=== PATIENT | male | born 1955 | race Hispanic/Latino ===

== ENCOUNTER 2024-01-05 06:03 | Day surgery (SDC) | payer OTHER ==
--- NOTE | 2023-12-30 13:51 | EKG ---
[facility] Test Date: 2023-12-30 Test Time: 13:44:34 Pat Name: PILAR WARREN Department: [facility] Room: Gender: M Theatre Manager: [id number] : 1955 Requested By: SEDA AKHTAR Order Number: [id number] Reading MD: Oni Maher Measurements Intervals Foster Rate: 70 P: 42 WA: 144 QRS: -9 QRSD: 97 T: 8 QT: 362 QTc: 391 Interpretive Statements Sinus rhythm No previous ECG available for comparison Electronically Signed On 12-30-2023 17:05:22 CDT by Oni Maher Please click the below link to view image of tracing.
[2023-12-30 13:56] LABS: BASOPHILS # (AUTO) 0.03 K/uL (0.00-0.20); BASOPHILS % (AUTO) 0.5 % (0.0-5.0); EOSINOPHILS # (AUTO) 0.25 K/uL (0.00-0.70); EOSINOPHILS % (AUTO) 3.8 % (0.0-8.0); HEMATOCRIT 36.1 % (42-54); IMMATURE GRANULOCYTE ABSOLUTE 0.02 K/uL (0-1); LYMPHOCYTES # (AUTO) 2.1 K/uL (1.0-4.8); LYMPHOCYTES % (AUTO) 31.5 % (21.0-51.0); MEAN CORPUSCULAR HEMOGLOBIN 29.5 pg (27.0-33.0); MEAN CORPUSCULAR HGB CONC 32.4 g/dL (32.0-36.0); MEAN CORPUSCULAR VOLUME 90.9 fL (79-99); MONOCYTES # (AUTO) 0.4 K/uL (0.1-1.0); MONOCYTES % (AUTO) 5.4 % (3.0-13.0); NEUTROPHILS # (AUTO) 3.9 K/uL (1.8-7.7); NEUTROPHILS % (AUTO) 58.5 % (40.0-77.0); PLATELET COUNT (AUTO) 238 K/uL (130-400); RED BLOOD CELL COUNT(AUTO) 3.97 MIL/uL (4.50-6.20); RED CELL DISTRIBUTION WIDTH 12.5 % (11.0-15.5); WHITE BLOOD COUNT (AUTO) 6.6 K/uL (4.8-10.8)
[2023-12-30 14:08] VITALS: BP 133/60; PULSE 72; RESP 19; TEMP 98.8
[2023-12-30 14:12] LABS: ALBUMIN 4.1 g/dL (3.5-5.0); BILIRUBIN,TOTAL 0.5 mg/dL (0.2-1.0); CREATININE 0.9 mg/dL (0.5-1.3); POTASSIUM 4.4 mmol/L (3.5-5.1); TOTAL PROTEIN, SERUM 7.7 g/dL (6.0-8.3)
[2023-12-30 14:17] LABS: INR 0.98 (0.85-1.15); PROTHROMBIN TIME 10.6 SEC (9.6-11.6)
[2023-12-30 14:18] LABS: PARTIAL THROMBOPLASTIN TIME 27.1 SEC (26.3-35.5)
[~2024-01-05] VITALS: Ht 160 cm; Wt 65.6 kg
[2024-01-05] VITALS (13 sets, daily range): BP systolic 124–153; BP diastolic 53–73; PULSE 72–95; RESP 13–18; TEMP 97.2–98.1
[~2024-01-05 06:03] MED LIST: ATOR10 PO; LISI5TAB21 PO; METF-444 PO; METF-446 PO
[2024-01-05] MEDS: ceFAZolin SODIUM 1 GM VIAL ONE (06:14)
[2024-01-05] MEDS ORDERED: acetaMINOPHEN 100 ML ONE (06:56)
[2024-01-05] MEDS ORDERED: FAMOTIDINE 20MG VIAL IV ONE (06:56)
[2024-01-05] MEDS ORDERED: rocuRONium bROMide 10MG/1ML 5ML VL ONE (07:03)
[2024-01-05] MEDS ORDERED: LIDOCAINE PF 100MG/5ML (2%) SYRINGE 5ML ONE (07:03)
[2024-01-05] MEDS ORDERED: proPOFol 10 MG/ML 20ML VIAL IV ONE (07:03)
[2024-01-05] MEDS ORDERED: FENTanyl CITRate PF 50 MCG/1 ML 2ML VIAL ONE (07:04)
[2024-01-05] MEDS ORDERED: dexaMETHasone SOD PHOSPHATE 10MG/ML 1ML VIAL ONE (07:57)
[2024-01-05] MEDS ORDERED: ondanSETRON 4MG INJ ONE (07:57)
[2024-01-05] MEDS: BUPIvacaine/PF 0.25% 30ML VIAL IJ ONE (08:18)
[2024-01-05] MEDS: LIDOCAINE 1%-EPI 1:100,000 20 ML VIAL ONE (08:18)
[2024-01-05] MEDS ORDERED: NEOSTIGMINE METHYLSULFATE 1MG/ML IV ONE (08:28)
[2024-01-05] MEDS ORDERED: GLYCOPYRROLATE 0.2 MG/ML 5 ML VIAL ONE (08:28)
[2024-01-05] MEDS ORDERED: SUGAMMADEX SODIUM 200 MG/2 ML VIAL IV ONE (08:33)
--- NOTE | 2024-01-05 08:42 | OP ---
Operative Note: DATE OF PROCEDURE: 01/05/24 SURGEON: SHARON BALL MD THERMOMETER PRODUCTION WORKER: None ANESTHESIA: general ANESTHESIOLOGIST/STAFF RADIOGRAPHER: STAFF RADIOGRAPHER PREOPERATIVE DIAGNOSIS: Anal Fistula POSTOPERATIVE DIAGNOSIS: Anal fistula PROCEDURE: Complex anal fistulotomy ESTIMATED BLOOD LOSS: minimal INDICATIONS:Mr. Reeder is a very pleasant 68 year old male who presents with fistula in ano. he wished to proceed with surgery. Complications, alternatives, risk and benefits of the procedure were discussed and include but not limited to infection, bleeding, injury to surrounding structures such as blood vessels nerv es and other organs including sphincter complex leading to incontinence, recurrence of disease, poor wound healing and the need for additional procedures. he voiced complete understanding and wished to proceed with surgery. all of his questions were answered to his satisfaction. DESCRIPTION OF PROCEDURE: After informed consent was obtained, the patient was taken to the operating room and laid in the supine position. once general anesthesia was obtained, the patient was carefully placed into the lithotomy position. next the perianal area was prepped and draped in the usual sterile fashion. A time out was performed to confirm the correct patient and procedure. next a pudenal block was performed followed by placement of a Fansler anoscope. There was a well defined external opening in the posterior midline. A fistula probe was placed into the external opening which passed easily into an internal opening in the posterior midline. The amount of muscle was assessed and was approximately 5% of the muscle and thus a fistulotomy was performed. The fistula tract was opened over the fistula probed. The wound was without any granulation tissue and thus no specimen was the tract was obliterated with electrocautery including the internal opening. Next the wound was marsupialized with chromic sutures. Hemostasis was obtained. Additional local anesthetic was given for post op pain control. A gauze dressing was applied. The patient tolerated the procedure well and was taken to the recovery room in stable condition. Complications None Counts: correct x 2 by nursing staff Specimens none SHARON BALL MD Jan 05, 2024 08:42
[2024-01-05] MEDS: 0.9%NACL 1000ML 1,000 ML IV ONE (08:47)
--- NOTE | 2024-01-05 09:57 | NUR ---
Patient aox4. Denies c/o pain or discomfort. Surgical dressing clean, dry and intact. Voiced understanding to surgical site precautions and follow up expectations. Ambulated to bathroom with standby assist. Voided large amount of clear urine. PIV discontinued with catheter tip intact. Full and complete Discharge instructions given to Patient and Family. All questions answered. W/C to POV with Family to Home.
== END 2024-01-05 09:55 | disposition home or self-care (01) ==
LOC: DAH 06:03
PROVIDERS: ATTEND Surgery
DX: K60.30 Anal fistula, unspecified (principal); I10 Essential (primary) hypertension; E11.9 Type 2 diabetes mellitus without complications; E78.00 Pure hypercholesterolemia, unspecified; Z79.84 Long term (current) use of oral hypoglycemic drugs; Z79.01 Long term (current) use of anticoagulants; Z79.899 Other long term (current) drug therapy
CPT/HCPCS: 80053; 85025; 85610; 85730; 36415; 93005; 46280; 82948 ×2; A6260; A4663; J7120; J3490 ×4; J3010; J0690; J1100; J7030; J0665; J2003; J2704; J2405; J2710; A4649 ×2; A4930; A4215; A4213; A4222; A4221; A4216; A4223 ×2; A4600